=== PATIENT | female | born 1990 | race Two or more races ===

== ENCOUNTER 2021-04-18 10:39 | Emergency (ER) | payer OTHER ==
[2021-04-18 10:53] VITALS: BP 132/81; PULSE 78; TEMP 98.5; BMI 42.0
[2021-04-18] MEDS ORDERED: DIPHTH,PERTUSS(ACELL),TET 0.5 ML DISP.SYRIN IM ONE ×2 (10:54→11:03)
[2021-04-18] MEDS ORDERED: IBUPROFEN 600 MG TABLET (FP) PO ONE ×2 (12:23→12:39)
[2021-04-18] MEDS ORDERED: AMOX TR/POT CLAV 875MG/125MG TABLETS (FP) PO ONE (12:23)
[2021-04-18] MEDS ORDERED: AMOX TR/POT CLAV 875MG/125MG TABLETS (FP) ONE (12:39)
== END 2021-04-18 12:56 | disposition home or self-care (01) ==
LOC: JER 10:39 → JERFT 10:39
PROC: 0HQFXZZ Repair Right Hand Skin, External Approach (ICD-10-PCS; principal; 2021-04-18)
PROC: 3E0234Z Introduction of Serum, Toxoid and Vaccine into Muscle, Percutaneous Approach (ICD-10-PCS; 2021-04-18)
DX: S61.216A Laceration without foreign body of right little finger without damage to nail, initial encounter (principal)
CPT/HCPCS: 73130-TC-RT-FY; 90471; 90715; 99284-25

== ENCOUNTER 2021-04-28 13:12 | Emergency (ER) | payer OTHER ==
[2021-04-28 13:17] VITALS: BP 96/65; PULSE 63; TEMP 98.1; BMI 38.2
== END 2021-04-28 14:16 | disposition home or self-care (01) ==
LOC: JERFT 13:12
DX: S61.216A Laceration without foreign body of right little finger without damage to nail, initial encounter (principal); Z48.02 Encounter for removal of sutures
CPT/HCPCS: 99281-25

== ENCOUNTER 2022-08-23 11:01 | Emergency (ER) | payer OTHER ==
[2022-08-23 12:00] VITALS: BP 130/78; PULSE 83; RESP 18; TEMP 98.4; BMI 34.4
== END 2022-08-23 14:22 | disposition home or self-care (01) ==
LOC: JER 11:01
DX: R05.1 Acute cough (principal)
CPT/HCPCS: 0241U-QW; 93005; 93010; 99284-25

== ENCOUNTER 2024-04-18 18:07 | Emergency (ER) | payer OTHER ==
[2024-04-18 18:16] VITALS: BP 96/58; BMI 37.4
[2024-04-18] MEDS ORDERED: ALBUTEROL SO4 2.5/IPRATROPIUM 0.5 INH SOL 3 ML VIAL.NEB. NEB ONE (20:30)
[2024-04-18] MEDS ORDERED: predniSONE 20 MG TABLET (UD) ONE (20:30)
[2024-04-18] MEDS: predniSONE 20 MG TABLET (UD) PO ONE (20:34)
[2024-04-18] MEDS: ALBUTEROL SO4 2.5/IPRATROPIUM 0.5 INH SOL 3 ML VIAL.NEB. NEB SCH (20:34)
[2024-04-18 22:11] VITALS: PULSE 77; RESP 20
[2024-04-18 22:23] VITALS: TEMP 97.8
== END 2024-04-18 22:26 | disposition home or self-care (01) ==
LOC: JERFT 18:07
DX: J45.21 Mild intermittent asthma with (acute) exacerbation (principal); R05.9 Cough, unspecified; R09.81 Nasal congestion; R07.89 Other chest pain; Z20.822 Contact with and (suspected) exposure to COVID-19
CPT/HCPCS: 0241U-QW; 71046-TC-FY; 99284-25